=== PATIENT | female | born 1980 | race Caucasian/White ===

== ENCOUNTER 2020-11-08 21:07 | Emergency (ER) | payer BC ==
[2020-11-08] MEDS ORDERED: Ondansetron 4 MG Tab.DIS PO ONE (22:21)
--- NOTE | 2020-11-08 22:34 | EDM.PDOC ---
<Cindy Kumar V - Last Filed: 11/08/20 23:46> ED HPI GENERAL MEDICAL PROBLEM - General Chief Complaint: Respiratory Problem Stated Complaint: DIFFICULTY BREATHING Time Seen by Provider: 11/08/20 22:04 Source of Information: Reports: Patient, RN Notes Reviewed History Limitations: Reports: No Limitations - History of Present Illness INITIAL COMMENTS - FREE TEXT/NARRATIVE: Patient is a 40-year-old female who presents to the ER for lingering COVID-19 symptoms. Patient was diagnosed on November 01, but notes she has been symptomatic since 10/26/2020. Patient states that she has been off quarantine, and did return to work at her normal job, today. States that she felt pretty well all day but towards the end of the day, she became very fatigued, felt somewhat nauseous, and developed a pain in her left chest, that seems to radiate into between her shoulder blades. She is not felt pain like this before ever. She is denying any fevers or chills, cough, worsening shortness of breath. Treatments INS[employer]ANCE [employer]UARY: Reports: Acetaminophen - Related Data Allergies Allergy/AdvReac Type Severity Reaction Status Date / Time No Known Allergies Allergy Verified 11/08/20 21:21 Home Meds: Home Meds dexAMETHasone [Decadron] 6 mg PO BID #9 tablet 11/09/20 [Rx] Past Medical History HEENT History: Reports: Impaired Vision Other HEENT History: wears glasses [employer] History: Reports: - Infectious Disease History Infectious Disease History: Reports: C-Difficile, Mononucleosis, Novel Coronavirus - Past Surgical History Female Surgical History: Reports: Hysterectomy Social & Family History - Tobacco Use Tobacco Use Status *Q: Never Tobacco User Second Hand Smoke Exposure: No - Caffeine Use Caffeine Use: Reports: Coffee, Soda - Recreational Drug Use Recreational Drug Use: No ED ROS GENERAL - Review of Systems Review Of Systems: Comprehensive ROS is negative, except as noted in HPI. ED EXAM, GENERAL - Physical Exam Exam: See Below Exam Limited By: No Limitations General Appearance: Alert, WD/WN, No Apparent Distress (pt does appear generally unwell) Respiratory/Chest: No Respiratory Distress, Lungs Clear, Normal Breath Sounds, No Accessory Muscle Use, Chest Non-Tender Cardiovascular: Normal Peripheral Pulses, Regular Rate, Rhythm, No Edema Peripheral Pulses: 2+: Radial (L), Radial (R) Extremities: Normal Inspection, Normal Capillary Refill Neurological: Alert, Oriented, Normal Cognition, No Motor/Sensory Deficits Psychiatric: Normal Affect, Normal Mood Skin Exam: Warm, Dry, Intact, Normal Color, No Rash #1 Interpretation EKG Date: 11/08/20 Time: 22:21 Rhythm: NSR Rate (Beats/Min): 58 Central: Normal P-Wave: Present QRS: Normal ST-T: Normal QT: Normal Comparison: NA - No Prior EKG EKG Interpretation Comments: No obvious ischemia or acute ST changes noted, reviewed by myself and Dr. Cardenas. Course - Re-Assessments/Exams Free Text/Narrative Re-Assessment/Exam: 11/08/20 22:25 Patient presents to the ER for evaluation of her ongoing COVID-19 symptoms, difficulty breathing and left-sided chest discomfort. We will go ahead and get an x-ray, EKG, basic labs for initial evaluation. 11/08/20 22:36 X-ray has been taken, and there is an area on the patient's right upper chest, that is concerning for possibility of pneumonia. This was reviewed by myself and Dr. Cardenas. Patient will likely be started on azithromycin for community- acquired pneumonia. EKG done at time of triage, demonstrates normal sinus rhythm with no acute ST change or other abnormalities on initial review. 11/08/20 23:15 Patient's troponin did come back elevated at 0.151. I have been in contact with Software Configuration Manager Dr. Nobles at [facility] in [place], and he does recommend giving a few more labs, and having the patient evaluated for pulmonary embolus or dissecting aneurysm. A CTA of her chest has been ordered for further evaluation, we will go ahead and do a 3-hour repeat troponin, and a repeat EKG at around the same time, patient will be given 325 mg aspirin, and 1 dose of oral nitro, to see if this helps relieve some of her discomfort. The case was discussed with Dr. Cardenas, as it is past the end of my shift, he verbalized understanding of the patient's care. All orders have been placed, and he should just be able to await results and determine if the patient needs transfer. For tonight's purposes, both hospitals in [place] were full when I called for possible transfer. Departure - Departure Disposition: Home, Self-Care 01 Clinical Impression: Pneumonia due to COVID-19 virus, Elevated troponin I measurement, Elevated d- dimer - Discharge Information Prescriptions: dexAMETHasone [Decadron] 6 mg PO BID #9 tablet Instructions: Frequently Asked Questions About COVID-19 Vaccination - [facility] (06/27/2020) Referrals: Tammy Godoy PA-C [Primary Care Provider] - Forms: ED Department Discharge, ED Return to Work/School Form Additional Instructions: Evaluation in the emergency room tonight in regards to persistent fatigue and shortness of breath on minimal exertion secondary to recent diagnosis of COVID- 19 illness confirmed + November 01, 2020 but symptomatic since 26 October by history. Development of left-sided chest pain rating into your back under your shoulder blade brought you into the emergency room tonight. Work-up started by physician janitorial assistant Cindy Kumar. ECG revealed no sign of heart related illness. However markers for inflammation of the heart muscle did come back mildly elevated at 0.151 normal being up to 0.56 in our lab.. D-dimer also returned mildly elevated at 1.24 with normal being up to 0.[address] pulmonary angiogram was carried out to rule out blood clot in the lung and no blood clots were identified. However the CT reveals extensive Covid pneumonia in particular the right upper lobe of your lung and right lower lobe as well as left lower lobe and mildly in the left upper lobe of the lung as well. Repeat cardiac markers a troponin I came back lower at 0.144 indicating there is no evidence of heart attack. These markers are elevated due to the COVID-19 virus which causes generalized inflammation throughout the blood vessels and system. It is my opinion that you're fit not fit enough to return to work due to the extensive Covid pneumonia identified on CT exam. It is my opinion you should be off work until next Friday, October 17. A note will be written in this regard. I'm going to place you on steroid dexamethasone 6 mg twice daily usually with breakfast and supper for the next 5 days to help further reduce the inflammation caused by the COVID-19 illness in your lungs. Tablet was provided in the emergency room this morning. Next tablet would be due at suppertime tonight your fatigue level will slowly improve but it would likely be another month before you feel anywhere closer back to normal. Suggest follow-up with your primary care provider next to make sure your feeling good enough to return to work. <Lyndon Cardenas - Last Filed: 11/09/20 02:57> #2 Interpretation EKG Date: 11/09/20 Time: 01:37 Rhythm: NSR Rate (Beats/Min): 61 Central: Normal P-Wave: Present QRS: Other (R wave in lead I is suggestive of left ventricular hypertrophy pattern) ST-T: Normal QT: Normal EKG Interpretation Comments: Essentially normal ECG Course - Vital Signs Last Recorded V/S: Last Vital Signs Temp 36.3 C 11/08/20 21:22 Pulse 72 11/08/20 21:22 Resp 16 11/08/20 21:22 BP 109/77 11/09/20 00:25 Pulse Ox 98 11/08/20 21:22 - Orders/Labs/Meds Orders: Active Orders 24 hr Category Date Time Status Peripheral IV Care [RC] . DIRECTED Care 11/08/20 23:11 Active Ang Chest [CT] Stat Exams 11/08/20 23:24 Taken Chest 1V Frontal [CR] Stat Exams 11/08/20 22:19 Taken Sodium Chloride 0.9% [Saline Flush] Med 11/08/20 23:10 Active 10 ml FLUSH ASDIRECTED PRN Peripheral IV Insertion Adult [OM.PC] Routine Oth 11/08/20 23:11 Ordered Medication Orders Sodium Chloride (Sodium Chloride 0.9% 10 Ml Syringe) 10 ml FLUSH ASDIRECTED PRN PRN Reason: Keep Vein Open Last Admin: 11/08/20 23:40 Dose: 10 ml Documented by: BABITA Labs: Laboratory Tests 11/08/20 11/08/20 11/08/20 Range/Units 22:30 22:30 22:30 WBC 3.37 L (3.98-10.04) K/mm3 RBC 4.17 (3.98-5.22) M/mm3 Hgb 11.9 (11.2-15.7) gm/dl Hct 36.9 (34.1-44.9) % MCV 88.5 (79.4-94.8) fl MCH 28.5 (25.6-32.2) pg MCHC 32.2 (32.2-35.5) g/dl RDW Std Deviation 40.9 (36.4-46.3) fL Plt Count 261 (182-369) K/mm3 MPV 9.4 (9.4-12.3) fl Neut % (Auto) 54.0 (34.0-71.1) % Lymph % (Auto) 28.2 (19.3-51.7) % [place] % (Auto) 14.5 H (4.7-12.5) % Eos % (Auto) 2.1 (0.7-5.8) Baso % (Auto) 1.2 (0.1-1.2) % Neut # (Auto) 1.82 (1.56-6.13) K/mm3 Lymph # (Auto) 0.95 L (1.18-3.74) K/mm3 [place] # (Auto) 0.49 H (0.24-0.36) K/mm3 Eos # (Auto) 0.07 (0.04-0.36) K/mm3 Baso # (Auto) 0.04 (0.01-0.08) K/mm3 Manual Slide Review Abnormal smear PT (9.7-12.0) SECONDS INR APTT (21.7-31.4) SECONDS D-Dimer, Quantitative (0.19-0.50) mg/L Sodium 142 (136-145) mEq/L Potassium 3.6 (3.5-5.1) mEq/L Chloride 108 H (98-107) mEq/L Carbon Dioxide 28 (21-32) mEq/L Anion Gap 9.6 (5-15) BUN 9 (7-18) mg/dL Creatinine 0.7 (0.55-1.02) mg/dL Est Cr Clr Drug Dosing 83.65 mL/min Estimated GFR (MDRD) > 60 (>60) mL/min BUN/Creatinine Ratio 12.9 L (14-18) Glucose 97 (70-99) mg/dL Calcium 8.6 (8.5-10.1) mg/dL Total Bilirubin 0.3 (0.2-1.0) mg/dL AST 28 (15-37) U/L ALT 45 (14-59) U/L Alkaline Phosphatase 64 (46-116) U/L Troponin I 0.151 H* (0.00-0.056) ng/mL NT-Pro-B Natriuret Pep 122 (0-125) pg/mL Total Protein 6.5 (6.4-8.2) g/dl Albumin 3.1 L (3.4-5.0) g/dl Globulin 3.4 gm/dL Albumin/Globulin Ratio 0.9 L (1-2) 11/08/20 11/08/20 11/09/20 Range/Units 22:30 22:30 01:47 WBC (3.98-10.04) K/mm3 RBC (3.98-5.22) M/mm3 Hgb (11.2-15.7) gm/dl Hct (34.1-44.9) % MCV (79.4-94.8) fl MCH (25.6-32.2) pg MCHC (32.2-35.5) g/dl RDW Std Deviation (36.4-46.3) fL Plt Count (182-369) K/mm3 MPV (9.4-12.3) fl Neut % (Auto) (34.0-71.1) % Lymph % (Auto) (19.3-51.7) % [place] % (Auto) (4.7-12.5) % Eos % (Auto) (0.7-5.8) Baso % (Auto) (0.1-1.2) % Neut # (Auto) (1.56-6.13) K/mm3 Lymph # (Auto) (1.18-3.74) K/mm3 [place] # (Auto) (0.24-0.36) K/mm3 Eos # (Auto) (0.04-0.36) K/mm3 Baso # (Auto) (0.01-0.08) K/mm3 Manual Slide Review PT 10.4 (9.7-12.0) SECONDS INR 0.97 APTT 28.8 (21.7-31.4) SECONDS D-Dimer, Quantitative 1.24 H (0.19-0.50) mg/L Sodium (136-145) mEq/L Potassium (3.5-5.1) mEq/L Chloride (98-107) mEq/L Carbon Dioxide (21-32) mEq/L Anion Gap (5-15) BUN (7-18) mg/dL Creatinine (0.55-1.02) mg/dL Est Cr Clr Drug Dosing mL/min Estimated GFR (MDRD) (>60) mL/min BUN/Creatinine Ratio (14-18) Glucose (70-99) mg/dL Calcium (8.5-10.1) mg/dL Total Bilirubin (0.2-1.0) mg/dL AST (15-37) U/L ALT (14-59) U/L Alkaline Phosphatase (46-116) U/L Troponin I 0.144 H* (0.00-0.056) ng/mL NT-Pro-B Natriuret Pep (0-125) pg/mL Total Protein (6.4-8.2) g/dl Albumin (3.4-5.0) g/dl Globulin gm/dL Albumin/Globulin Ratio (1-2) Meds: Medications Generic Name Dose Route Start Last Admin Trade Name Freq PRN Reason Stop Dose Admin Sodium Chloride 10 ml 11/08/20 23:10 11/08/20 23:40 Sodium Chloride 0.9% 10 Ml Syringe FLUSH 10 ml ASDIRECTED PRN Administration Keep Vein Open Discontinued Medications Generic Name Dose Route Start Last Admin Trade Name Freq PRN Reason Stop Dose Admin Aspirin 324 mg 11/08/20 23:25 11/08/20 23:37 Aspirin 81 Mg Tab.Chew PO 11/08/20 23:26 324 mg ONETIME ONE Administration Dexamethasone 6 mg 11/09/20 02:37 Dexamethasone 4 Mg Tab PO 11/09/20 02:38 ONETIME ONE Nitroglycerin 0.4 mg 11/08/20 23:22 11/09/20 00:25 Nitroglycerin 0.4 Mg Tab.Sl SL 11/08/20 23:23 0.4 mg ONETIME ONE Administration Ondansetron HCl 4 mg 11/08/20 22:21 11/08/20 22:32 Ondansetron 4 Mg Tab.Dis PO 11/08/20 22:22 4 mg ONETIME ONE Administration - Re-Assessments/Exams Free Text/Narrative Re-Assessment/Exam: 11/09/20 01:38 Care has been assumed from SEAN -- Cindy Kumar .Patient is to have repeat ECG and troponin values around 0100hrs .CT pulmonary angiogram has been carried out. There are no CT apparent pulmonary arterial filling defects. The thoracic aorta is normal with no aneurysm and no dissection. Lungs revealed bilateral multifocal areas of interstitial groundglass opacity of a severe nature distribution is peripheral the dominant focus is in the right upper lobe. The middle lobe is spared left upper lobe and both lower lobes are involved. No pleural effusion or pneumothorax the heart is not enlarged there is no evidence of lymphadenopathy the liver shows a 20 mm cyst in the left lobe of the liver. This may actually reflect 2 adjacent cyst together the adrenal glands appear normal. Kidneys and ureters reveal 42 mm smoothly marginated water density left renal lesion statistically reflecting a benign cyst. Bones and joints appear to be normal. There is no soft tissue abnormality. 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 shows sinus rhythm at 61/min tall R wave in lead I is suggestive of left ventricular hypertrophy pattern no signs of ischemia. Neck and troponin I value is slightly less than 0.151 obtained initially it is currently 0.144 11/09/20 02:35 Discussed the findings with the patient and her . It appears that elevated markers for troponin and D-dimer are secondary to COVID-19 illness. BNP is normal at 122. Patient does have extensive Covid pneumonia particularly right upper lobe and both upper and lower lobes on the left side as right lower lobe of lung field. I'm going to place her on dexamethasone 6 mg twice daily for 5 days in an effort to further reduce the inflammation cascade that has been caused by COVID-19 illness. She is not good enough to return to work. She will give be given a note to excuse her from the workplace for at least another week. I have asked her to follow-up with her primary care physician in 1 week's time to make sure she is feeling fit enough to return to work Departure - Departure Time of Disposition: 02:37 Condition: Fair - Discharge Information *PRESCRIPTION DRUG MONITORING PROGRAM REVIEWED*: Not Applicable *COPY OF PRESCRIPTION DRUG MONITORING REPORT IN PATIENT SHANNON: Not Applicable Sepsis Event Note (ED) - Focused Exam Vital Signs: Vital Signs Temp Pulse Resp BP BP Pulse Ox 11/09/20 00:25 109/77 11/08/20 21:22 36.3 C 72 16 132/90 98
[2020-11-08] MEDS ORDERED: Sodium Chloride 0.9% 10 ML Syringe FLUSH PRN (23:10)
[2020-11-08] MEDS ORDERED: Nitroglycerin 0.4 MG Tab.SL SL ONE (23:22)
[2020-11-08] MEDS ORDERED: Aspirin 81 MG Tab.Chew PO ONE (23:25)
[2020-11-09] MEDS ORDERED: Dexamethasone 4 MG Tab PO ONE (02:37)
--- NOTE | 2020-11-09 07:22 | CR ---
Chest: Portable view of the chest was obtained. Comparison: No prior chest imaging is available. Focal consolidation is seen within the right upper chest. Lungs otherwise are clear by chest x-ray. Heart size and mediastinum are normal. Bony structures show nothing acute. Impression: 1. Focal consolidation within the right upper chest. This most likely represents COVID pneumonia. Diagnostic code #3
--- NOTE | 2020-11-09 07:32 | CT ---
CT chest Technique: Multiple axial sections through the chest were obtained. Intravenous contrast was utilized. Study has been performed as a pulmonary angiogram protocol. Comparison: Prior chest x-ray performed on 11/08/20 (10:28 PM). Pulmonary arteries are well opacified. No filling defects are seen to indicate pulmonary embolism. Thoracic aorta shows no aneurysm. No pericardial thickening is seen. Small portion of the visualized upper abdominal structures show a cyst within the left kidney measuring 3.9 cm. Bilobulated cyst is noted within the left lobe which measures 2.0 cm. Lung window settings were reviewed which show increased density through a large portion of the right upper lung. Other smaller parenchymal densities are seen within both lower lobes as well as within the left upper lung. Bone window settings were reviewed which appear within normal limits for the patient's age. Impression: 1. No findings of pulmonary embolism. 2. Cyst within the left kidney and liver. 3. Patchy areas of increased density on both sides of the chest, worse within the right upper lung. Findings most likely represent COVID pneumonia. Diagnostic code #3 I agree with preliminary report from [facility], finalized on 11/09/20, 2:16 AM CDT, code 1
== END 2020-11-09 03:06 | disposition home or self-care (01) ==
LOC: JD.ED 21:07
DX: U07.1 COVID-19 (principal); J12.82 Pneumonia due to coronavirus disease 2019; R79.89 Other specified abnormal findings of blood chemistry; R79.1 Abnormal coagulation profile
CPT/HCPCS: 36415; 71045; 71275; 80053; 83880; 84484; 85025; 85379; 85610; 85730; 93005; 99285; A9270; J8540; 93010; 99284